=== PATIENT | female | born 1990 | race Caucasian/White ===

== ENCOUNTER 2019-05-26 23:36 | Inpatient (IN) | payer OTHER ==
--- NOTE | 2019-05-27 02:20 | PDOC ---
*Physical Exam - Vital Signs Last Vital Signs Temp Pulse Resp BP Pulse Ox 98.6 F 93 H 19 132/76 96 05/26/19 23:36 05/26/19 23:36 05/26/19 23:36 05/26/19 23:36 05/26/19 23:36 ED Treatment Course - LABORATORY CBC & Chemistry Diagram: 05/27/19 03:13 05/27/19 03:13 Medical Decision Making - Medical Decision Making 05/27/19 02:20 Patient seen by the advanced practice provider under my direct supervision. Ancillary testing reviewed as necessary. I agree with plan as outlined by the advanced practice provider. Discharge - Discharge Information Problems reviewed: Yes Clinical Impression/Diagnosis: Pneumonia Qualifiers: Pneumonia type: due to unspecified organism Laterality: left Lung location: lower lobe of lung Qualified Code(s): J18.9 - Pneumonia, unspecified organism Condition: Fair - Follow up/Referral - Patient Discharge Instructions - Post Discharge Activity
[2019-05-27] MEDS ORDERED: methylPREDNISolone NA SUCC 125 MG/2 ML VIAL IVPUSH ONE (02:38)
--- NOTE | 2019-05-27 02:38 | PDOC ---
History of Present Illness - General Chief Complaint: Respiratory Stated Complaint: SOB Time Seen by Provider: 05/27/19 02:14 History Source: Patient - History of Present Illness Initial Comments: 05/27/19 03:49 28-year-old female complaining of shortness of breath worsening throughout the day. Patient was seen in the [facility] urgent care yesterday and was prescribed azithromycin and amoxicillin. At [facility] patient was diagnosed with left lower lobe pneumonia. Patient reports no significant improvement. Denies fever/ chills, patient reports that symptoms started 1 day ago with a sore throat and cough. patient reports using albuterol at home with no relief in symptoms. denies OCP use, prolonged sitting PMHX: asthma 05/27/19 06:25 05/27/19 06:54 Past History - Past Medical History Allergies/Adverse Reactions: Allergies Allergy/AdvReac Type Severity Reaction Status Date / Time No Known Allergies Allergy Verified 05/26/19 23:55 Home Medications: Ambulatory Orders Clonidine HCl [Catapres] 0.2 mg PO BID 05/27/19 Metoprolol Tartrate 25 mg PO BID 05/27/19 Asthma: Yes - Psycho Social/Smoking Cessation Hx Smoking History: Never smoked Hx Alcohol Use: No Drug/Substance Use Hx: No Respiratory Specific PMHX - Complaint Specific PMHX Hx Asthma: Yes Hx Bronchitis: Yes Review of Systems - Review of Systems Able to Perform ROS?: Yes Is the patient limited Slovenian proficient: No Constitutional: Yes: Loss of Appetite HEENTM: No: Symptoms Reported, See HPI, Eye Pain, Blurred Vision, Tearing, Recent change in vision, Double Vision, Cataracts, Ear Pain, Ocular Prothesis, Ear Discharge, Nose Pain, Nose Congestion, Tinnitus, Nose Bleeding, Hearing Loss , Throat Pain, Throat Swelling, Mouth Pain, Dental Problems, Difficulty Swallowing, Mouth Swelling, Other Respiratory: Yes: Cough, Shortness of Breath Cardiac (ROS): Yes: Chest Tightness ABD/GI: No: Symptoms Reported, See HPI, Abdominal Distended, Abd. Pain w/ defecation, Blood Streaked Bowels, Constipated, Diarrhea, Difficulty Swallowing , Nausea, Poor Appetite, Poor Fluid Intake, Rectal Bleeding, Vomiting, Indigestion, Abdominal cramping, Tarry Stools, Other *Physical Exam - Vital Signs Last Vital Signs Temp Pulse Resp BP Pulse Ox 98.6 F 93 H 19 132/76 96 05/26/19 23:36 05/26/19 23:36 05/26/19 23:36 05/26/19 23:36 05/26/19 23:36 - Physical Exam General Appearance: Yes: Appropriately Dressed, Obese Respiratory/Chest: positive: Wheezing, Other (coarse breath sounds) Cardiovascular: positive: Regular Rhythm, Regular Rate Integumentary: positive: Normal Color, Dry, Warm Neurologic: positive: Fully Oriented, Normal Mood/Affect ED Treatment Course - LABORATORY CBC & Chemistry Diagram: 05/27/19 03:13 05/27/19 03:13 ED Progress Note - Progress Note Progress Note: 05/27/19 03:51 A: shortness of breath P: labs chest xray Medical Decision Making - Medical Decision Making 05/27/19 05:33 Improved aeration. Clear breath sounds patient reports improvement in the chest congestion. Will switch antibiotic from amoxicillin to cefdinir. 05/27/19 06:10 patient noted to be tachycardic and hypoxic. will admit. ordered cta 05/27/19 06:14 05/27/19 07:02 patient signed out to Gloria RODRIGUEZ pending admission. 05/27/19 19:13 Discharge - Discharge Information Problems reviewed: Yes Clinical Impression/Diagnosis: Hypoxia, Shortness of breath Pneumonia Qualifiers: Pneumonia type: due to unspecified organism Laterality: left Lung location: unspecified part of lung Qualified Code(s): J18.9 - Pneumonia, unspecified organism Condition: Fair - Admission Yes - Follow up/Referral - Patient Discharge Instructions - Post Discharge Activity
[2019-05-27] MEDS ORDERED: methylPREDNISolone NA SUCC 125 MG/2 ML VIAL ONE (02:47)
[2019-05-27] MEDS ORDERED: ALBUTEROL SO4 2.5/IPRATROPIUM 0.5 INH SOL 3 ML VIAL.NEB. NEB ONE ×3 (02:47→04:28)
[2019-05-27] MEDS: ALBUTEROL SO4 2.5/IPRATROPIUM 0.5 INH SOL 3 ML VIAL.NEB. NEB SCH ×3 (03:05→21:00)
[2019-05-27 03:21] LABS: URINE APPEARANCE CLEAR; URINE COLOR YELLOW
[2019-05-27 03:22] LABS: URINE BILIRUBIN NEGATIVE (NEGATIVE); URINE GLUCOSE (UA) NEGATIVE (NEGATIVE); URINE KETONE NEGATIVE (NEGATIVE); URINE PROTEIN 30 (NEGATIVE)
[2019-05-27 03:23] LABS: URINE LEUK ESTERASE NEGATIVE (NEGATIVE); URINE NITRITE NEGATIVE (NEGATIVE); URINE RBC 8 /hpf (0-4); URINE UROBILINOGEN 0.2 mg/dL (0.2-1.0); URINE WBC 1 /hpf (0-5)
[2019-05-27 03:24] LABS: EPI CELLS FEW /HPF (0-5/HPF); HYALINE CASTS 5 /lpf (0-8); URINE BACTERIA 43 /hpf (NEGATIVE)
[2019-05-27 03:32] LABS: NEUT % 88.9 % (42.8-82.8); RDW 14.1 % (11.6-15.6)
[2019-05-27 03:37] LABS: BASO % 0.6 % (0-2.0); HEMATOCRIT 37.2 % (32.4-45.2); HEMOGLOBIN 12.3 GM/dL (10.7-15.3); MCH 30.7 pg (25.7-33.7); MCHC 33.1 g/dl (32.0-36.0); MEAN CELL VOLUME 92.7 fl (80-96); MONO % 5.5 % (3.8-10.2); PLATELET COUNT 218 K/MM3 (134-434); RBC 4.01 M/mm3 (3.60-5.2)
[2019-05-27 03:45] LABS: WHITE BLOOD COUNT 5.6 K/mm3 (4.0-10.0)
[2019-05-27 03:53] LABS: ALBUMIN 4.1 g/dl (3.4-5.0); BILIRUBIN,TOTAL 0.2 mg/dL (0.2-1); BLOOD UREA NITROGEN 11.1 mg/dL (7-18); CALCIUM 8.5 mg/dL (8.5-10.1); CREATININE 0.7 mg/dL (0.55-1.3); POTASSIUM 3.7 mmol/L (3.5-5.1); TOT PROT 7.2 g/dl (6.4-8.2)
[2019-05-27] MEDS ORDERED: CEFTRIAXONE 1,000 MG in DEXTROSE 5%-WATER - 50 ML IVPB ONE (04:10)
[2019-05-27] MEDS ORDERED: guaiFENesin/CODEINE 10 ML UNIT-DOSE CUPS PO ONE (04:40)
[2019-05-27] MEDS ORDERED: guaiFENesin/CODEINE 5 ML UNIT-DOSE CUPS PO ONE ×2 (04:48→15:13)
[2019-05-27] MEDS ORDERED: CEFTRIAXONE 1 GM/50 ML BAG ONE ×2 (04:48→10:16)
--- NOTE | 2019-05-27 08:15 | PDOC ---
*Physical Exam - Vital Signs Last Vital Signs Temp Pulse Resp BP Pulse Ox 99.8 F H 113 H 22 H 135/86 88 L 05/27/19 05:30 05/27/19 05:30 05/27/19 05:30 05/27/19 05:30 05/27/19 05:30 - Physical Exam General Appearance: Yes: Appropriately Dressed. No: Apparent Distress HEENT: positive: Normal Voice Neck: positive: Supple Respiratory/Chest: positive: Lungs Clear, Normal Breath Sounds. negative: Respiratory Distress Integumentary: positive: Dry, Warm Neurologic: positive: Fully Oriented, Alert, Normal Mood/Affect ED Treatment Course - LABORATORY CBC & Chemistry Diagram: 05/27/19 03:13 05/27/19 03:13 - ADDITIONAL ORDERS Additional order review: Laboratory Results 05/27/19 05/27/19 05/27/19 03:13 02:52 02:52 Sodium 137 Potassium 3.7 Chloride 107 Carbon Dioxide 22 Anion Gap 8 BUN 11.1 Creatinine 0.7 Est GFR (CKD-EPI)AfAm 137.62 Est GFR (CKD-EPI)NonAf 118.74 Random Glucose 115 H Calcium 8.5 Total Bilirubin 0.2 AST 14 L ALT 26 Alkaline Phosphatase 69 Total Protein 7.2 Albumin 4.1 Urine Color Yellow Urine Appearance Clear Urine pH 6.0 Ur Specific [place] 1.040 H Urine Protein 30 Urine Glucose (UA) Negative Urine Ketones Negative Urine Blood Negative Urine Nitrite Negative Urine Bilirubin Negative Urine Urobilinogen 0.2 Ur Leukocyte Esterase Negative Urine WBC (Auto) 1 Urine RBC (Auto) 8 Urine Casts (Auto) 5 U Epithel Cells (Auto) Few Urine Bacteria (Auto) 43 Urine HCG, Qual Negative 05/27/19 03:13 RBC 4.01 MCV 92.7 MCHC 33.1 RDW 14.1 MPV 10.0 Neutrophils % 88.9 H Lymphocytes % 5.0 L Monocytes % 5.5 Eosinophils % 0.0 Basophils % 0.6 - Medications Given in the ED: ED Medications Discontinued Medications Generic Name Dose Route Start Last Admin Trade Name Freq PRN Reason Stop Dose Admin Albuterol/Ipratropium 1 amp 05/27/19 02:45 05/27/19 03:21 Duoneb - NEB 05/27/19 03:01 1 amp Q15M RUBIO Administration Albuterol/Ipratropium 1 amp 05/27/19 03:52 05/27/19 04:35 Duoneb - NEB 05/27/19 03:53 1 amp ONCE ONE Administration Guaifenesin/Codeine Phosphate 10 ml 05/27/19 04:40 05/27/19 05:00 Robitussin Ac - PO 05/27/19 04:41 10 ml ONCE ONE Administration Ceftriaxone Sodium 1,000 mg/ 50 mls @ 100 mls/hr 05/27/19 04:10 05/27/19 04: 56 Dextrose IVPB 05/27/19 04:39 100 mls/hr ONCE ONE Administration Methylprednisolone Sodium Succinate 125 mg 05/27/19 02:38 05/27/19 03:45 Solu-Medrol - IVPUSH 05/27/19 02:39 125 mg ONCE ONE Administration Medical Decision Making - Medical Decision Making 05/27/19 08:08 Patient signed out to me at 7 AM as pending admission. Patient is a morbidly obese 28-year-old female with a history of asthma and pneumonia, s/p intubation for same at 17 years old, here with worsening shortness of breath. Patient patient states 4 days ago she developed cough, shortness of breath and wheezing and that her home asthma meds were not helping so went to [facility] and was diagnosed with LLL pneumonia. Was on azithromycin and amoxicillin with no relief. Labs unremarkable in ED. EKG w/ sinus tach and atelectic changes to L base on CXR. Patient initially improved and was being prepared for discharge when was found to be hypoxic to high 80s per prior team. Has since been given steroids and a dose of ceftriaxone w/ CTA pending. Pending signout to admitting team Discharge - Discharge Information Problems reviewed: Yes Clinical Impression/Diagnosis: Bronchitis, Hypoxia, Shortness of breath Condition: Fair - Admission Yes - Follow up/Referral - Patient Discharge Instructions - Post Discharge Activity
--- NOTE | 2019-05-27 08:19 | HP ---
CHIEF COMPLAINT: Shortness of breath PCP: Dr Ashley Chilel- [facility] HISTORY OF PRESENT ILLNESS: Pt is a 28 y/o F with a significant past medical history of HTN and asthma who presents to [facility] [place] 2[facility] due to shortness of breath. Pt endorses that her symptoms commenced Sunday. Pt endorses the shortness of breath woke her from sleep. States she also has been experiencing a cough productive of clear sputum during this time. Pt experiences pain with deep inspiration. Yesterday, pt went to [facility] Urgent care where she underwent a CXR and was told she had " a left lung infiltrate". Pt was placed on a Z-Tim as well as amoxicillin. Pt has also taken Robitussin which has not [id number] her symptoms. In ER, pt was noted to desaturate to 88% on room air. Pt denies ever experiencing these symptoms before. Denies travel history, oral contraceptive use, prolonged immobilization , family history of clotting disorders, or recent surgery. Does endorse an extensive smoking history. PMH as Above SocialHx- Smokes 1PPD Tobacco. Denies alcohol or illicit drug use SurgHx- Denies FamHx- Mother Healthy. Father HTN NKDA ER course was notable for: (1) CXR--> Atelectasis left lung base (2) O2 sat 88% on room air (3) Ceftriaxone 1 gram, Solumedrol 125 once Recent Travel: Denies HOME MEDICATIONS: REVIEW OF SYSTEMS CONSTITUTIONAL: PRESENT: chills generalized weakness, malaise HEENT: Absent: rhinorrhea, nasal congestion, throat pain, throat swelling, difficulty swallowing, mouth swelling, ear pain, eye pain, visual changes CARDIOVASCULAR: Absent: chest pain, syncope, palpitations, irregular heart rate, lightheadedness , peripheral edema RESPIRATORY: PRESENT cough, shortness of breath, dyspnea with exertion GASTROINTESTINAL: Absent: abdominal pain, abdominal distension, nausea, vomiting, diarrhea, constipation, melena, hematochezia GENITOURINARY: Absent: dysuria, frequency, urgency, hesitancy, hematuria, flank pain, genital pain MUSCULOSKELETAL: Absent: myalgia, arthralgia, joint swelling, back pain, neck pain SKIN: Absent: rash, itching, pallor HEMATOLOGIC/IMMUNOLOGIC: Absent: easy bleeding, easy bruising, lymphadenopathy, frequent infections ENDOCRINE: Absent: unexplained weight gain, unexplained weight loss, heat intolerance, cold intolerance NEUROLOGIC: Absent: headache, focal weakness or paresthesias, dizziness, unsteady gait, seizure, mental status changes, bladder or bowel incontinence PSYCHIATRIC: Absent: anxiety, depression, suicidal or homicidal ideation, hallucinations. PHYSICAL EXAMINATION Vital Signs - 24 hr 05/26/19 05/27/19 23:36 05:30 Temperature 98.6 F 99.8 F H Pulse Rate 93 H Pulse Rate [ 113 H Left Radial] Respiratory 19 22 H Rate Blood Pressure 132/76 Blood Pressure 135/86 [Left Arm] O2 Sat by Pulse 96 88 L Oximetry (%) GENERAL: Mild Distress, AAOx3 HEAD: Normal with no signs of trauma. EYES:EOMI Sclera Clear EARS, NOSE, THROAT: MMM NECK:Supple, no accessory muscle use for respiration LUNGS: No wheezing rhonchi or rales appreciated. Pain with inspiration. HEART: Tachycardic, S1S2 ABDOMEN: Soft, NDNT, Obese MUSCULOSKELETAL: FROm throughout LOWER EXTREMITIES: No CCE. NEUROLOGICAL: Cranial nerves II-XII intact. Normal speech. PSYCHIATRIC: Cooperative. Good eye contact. Appropriate mood and affect. SKIN: Warm, dry, normal turgor, no rashes or lesions noted, normal capillary refill. Laboratory Results - last 24 hr 05/27/19 05/27/19 05/27/19 02:52 02:52 03:13 WBC 5.6 RBC 4.01 Hgb 12.3 Hct 37.2 MCV 92.7 MCH 30.7 MCHC 33.1 RDW 14.1 Plt Count 218 MPV 10.0 Absolute Neuts (auto) 5.0 Neutrophils % 88.9 H Neutrophils % (Manual) No Result Required. Lymphocytes % 5.0 L Monocytes % 5.5 Eosinophils % 0.0 Basophils % 0.6 Nucleated RBC % 0 Sodium Potassium Chloride Carbon Dioxide Anion Gap BUN Creatinine Est GFR (CKD-EPI)AfAm Est GFR (CKD-EPI)NonAf Random Glucose Calcium Total Bilirubin AST ALT Alkaline Phosphatase Total Protein Albumin Urine Color Yellow Urine Appearance Clear Urine pH 6.0 Ur Specific [place] 1.040 H Urine Protein 30 Urine Glucose (UA) Negative Urine Ketones Negative Urine Blood Negative Urine Nitrite Negative Urine Bilirubin Negative Urine Urobilinogen 0.2 Ur Leukocyte Esterase Negative Urine WBC (Auto) 1 Urine RBC (Auto) 8 Urine Casts (Auto) 5 U Epithel Cells (Auto) Few Urine Bacteria (Auto) 43 Urine HCG, Qual Negative 05/27/19 03:13 WBC RBC Hgb Hct MCV MCH MCHC RDW Plt Count MPV Absolute Neuts (auto) Neutrophils % Neutrophils % (Manual) Lymphocytes % Monocytes % Eosinophils % Basophils % Nucleated RBC % Sodium 137 Potassium 3.7 Chloride 107 Carbon Dioxide 22 Anion Gap 8 BUN 11.1 Creatinine 0.7 Est GFR (CKD-EPI)AfAm 137.62 Est GFR (CKD-EPI)NonAf 118.74 Random Glucose 115 H Calcium 8.5 Total Bilirubin 0.2 AST 14 L ALT 26 Alkaline Phosphatase 69 Total Protein 7.2 Albumin 4.1 Urine Color Urine Appearance Urine pH Ur Specific [place] Urine Protein Urine Glucose (UA) Urine Ketones Urine Blood Urine Nitrite Urine Bilirubin Urine Urobilinogen Ur Leukocyte Esterase Urine WBC (Auto) Urine RBC (Auto) Urine Casts (Auto) U Epithel Cells (Auto) Urine Bacteria (Auto) Urine HCG, Qual ASSESSMENT/PLAN: Pt is a 28 y/o F with a significant past medical history of HTN and asthma who presents to [facility] [place] 2] due to shortness of breath. # Possible Community Acquired Pneumonia -Urgent care CXR--> LLL Infiltrate -CXR here---> Atelectasis LLL. -No fever or leukocytosis however. Pt started on Azithromycin and amoxicillin by Urgent care. Will place patient on Ceftriaxone and Azithro empirically until CT Chest finalized. - Robitussin PRN for cough # r/o Pulmonary Embolism -Pt wih pleuritic chest pain, tachycardia, multiple risk factors including exteneive smoking history and obesity. -CTA to assess for pulm embolism. -Tramadol, Tylenol prn for pain -Will AC if + PE #HTN -Resume Catapres .2 BID -Resume Metoprolol 25 BID #Asthma -Duonebs q4H PRN #FEN -NS@75 cc -Monitor Electrolytes -Sodium Controlled #DVT ppx -Lovenox 40 Daily #Dispo -Med -Surg Visit type - Emergency Visit Emergency Visit: Yes ED Registration Date: 05/27/19 Care time: The patient presented to the Emergency Department on the above date and was hospitalized for further evaluation of their emergent condition. - New Patient This patient is new to me today: Yes Date on this admission: 05/27/19 - Critical Care Critical Care patient: No ATTENDING PHYSICIAN STATEMENT I saw and evaluated the patient. I reviewed the resident's note and discussed the case with the resident. I agree with the resident's findings and plan as documented. SUBJECTIVE: OBJECTIVE: ASSESSMENT AND PLAN:
[2019-05-27] MEDS ORDERED: ACETAMINOPHEN 500 MG TABLET (FP) PO PRN (08:23)
[2019-05-27] MEDS ORDERED: MAGNESIUM SULF 50% (8.12 MEQ/2 ML-1 GM VIAL) IVPB ONE (09:32)
[2019-05-27] MEDS ORDERED: MAGNESIUM SULF 50% (8.12 MEQ/2 ML-1 GM VIAL) ONE (10:15)
[2019-05-27] MEDS ORDERED: PT OWN MED DRAWER 7, Y5N ONE (10:16)
[2019-05-27] MEDS ORDERED: AZITHROMYCIN IVPB 500 MG/250 ML BAG IVPB ONE (10:16)
[2019-05-27] MEDS ORDERED: METOPROLOL TARTRATE 25 MG TABLET (FP) ONE (10:17)
[2019-05-27] MEDS ORDERED: cloNIDine HCL 0.1 MG TABLET ONE (10:17)
--- NOTE | 2019-05-27 10:19 | EKG ---
Test Reason : Blood Pressure : / mmHG Vent. Rate : 102 BPM Atrial Rate : 102 BPM P-R Int : 150 ms QRS Dur : 086 ms QT Int : 340 ms P-R-T Axes : 051 019 047 degrees QTc Int : 443 ms SINUS TACHYCARDIA POSSIBLE LEFT ATRIAL ENLARGEMENT Confirmed by MD BLAZE, ROSA ([id number]) on 05/27/2019 10:19:32 AM Referred By: Confirmed By:ROSA THAKUR MD
[2019-05-27] MEDS: cloNIDine HCL 0.1 MG TABLET PO SCH ×2 (10:39→21:51)
[2019-05-27] MEDS: ENOXAPARIN NA (PORCINE) 40 MG/0.4 ML DISP.SYRIN SQ SCH (10:39)
[2019-05-27] MEDS: METOPROLOL TARTRATE 25 MG TABLET (FP) PO SCH ×2 (10:39→21:51)
[2019-05-27] MEDS: SODIUM CHLORIDE 1,000 ML IV SCH ×2 (10:39→20:18)
[2019-05-27] MEDS: AZITHROMYCIN IVPB 500 MG/250 ML BAG IVPB SCH (10:40)
[2019-05-27] MEDS ORDERED: traMADol HCL 50 MG TABLET ONE (11:05)
[2019-05-27] MEDS: traMADol HCL 50 MG TABLET PO PRN ×2 (11:32→18:27)
[2019-05-27] MEDS ORDERED: guaiFENesin/D-METHORPHAN HB 10 ML UNIT-DOSE CUPS PO ONE (12:08)
[2019-05-27 16:46] LABS: ARTERIAL BLD GAS O2 SATURATION 94.6 % (95-98); ARTERIAL BLOOD GAS BASE EXCESS -3.6 meq/l (-2-2); ARTERIAL BLOOD GAS PCO2 29.9 mmHg (35-45); ARTERIAL BLOOD GAS PO2 73.3 mmHg (80-100); ARTERIAL BLOOD GAS pH 7.43 (7.35-7.45)
[2019-05-27 16:55] LABS: ALLENS TEST POSITIVE
--- NOTE | 2019-05-27 19:15 | PN ---
Teaching Attending Note Name of Resident: Jamshid Wills ATTENDING PHYSICIAN STATEMENT I saw and evaluated the patient. I reviewed the resident's note and discussed the case with the resident. I agree with the resident's findings and plan as documented. SUBJECTIVE: Some improvement in SOB. No wheeze. Dry cough. No hemoptysis. Complains of tightness on breathing OBJECTIVE: Tmax 99.8. Hemodynamicaly Stable. Last Vital Signs Temp Pulse Resp BP Pulse Ox 99.8 F H 103 H 22 H 135/72 94 L 05/27/19 05:30 05/27/19 18:00 05/27/19 05:30 05/27/19 18:00 05/27/19 18:00 HEENT - Atraumatic, Normocephalic. Heart - S1, S2, RRR Lungs - Good Air entry bilaterally Abdomen - High BMI. Soft. Bowel Sounds normal. Extremities - no calf tenderness. Laboratory Results - last 24 hr 05/27/19 05/27/19 05/27/19 02:52 02:52 03:13 WBC 5.6 RBC 4.01 Hgb 12.3 Hct 37.2 MCV 92.7 MCH 30.7 MCHC 33.1 RDW 14.1 Plt Count 218 MPV 10.0 Absolute Neuts (auto) 5.0 Neutrophils % 88.9 H Neutrophils % (Manual) No Result Required. Lymphocytes % 5.0 L Monocytes % 5.5 Eosinophils % 0.0 Basophils % 0.6 Nucleated RBC % 0 Anticoagulation Therapy Puncture Site ABG pH ABG pCO2 at Pt Temp ABG pO2 at Pt Temp ABG HCO3 ABG O2 Sat (Measured) ABG O2 Content ABG Base Excess Eduardo Test O2 Delivery Device Oxygen Flow Rate Vent Mode Vent Rate Mechanical Rate Pressure Support Vent Sodium Potassium Chloride Carbon Dioxide Anion Gap BUN Creatinine Est GFR (CKD-EPI)AfAm Est GFR (CKD-EPI)NonAf Random Glucose Calcium Total Bilirubin AST ALT Alkaline Phosphatase Total Protein Albumin Urine Color Yellow Urine Appearance Clear Urine pH 6.0 Ur Specific [place] 1.040 H Urine Protein 30 Urine Glucose (UA) Negative Urine Ketones Negative Urine Blood Negative Urine Nitrite Negative Urine Bilirubin Negative Urine Urobilinogen 0.2 Ur Leukocyte Esterase Negative Urine WBC (Auto) 1 Urine RBC (Auto) 8 Urine Casts (Auto) 5 U Epithel Cells (Auto) Few Urine Bacteria (Auto) 43 Urine HCG, Qual Negative 05/27/19 05/27/19 03:13 15:55 WBC RBC Hgb Hct MCV MCH MCHC RDW Plt Count MPV Absolute Neuts (auto) Neutrophils % Neutrophils % (Manual) Lymphocytes % Monocytes % Eosinophils % Basophils % Nucleated RBC % Anticoagulation Therapy No Result Required. Puncture Site Left radial ABG pH 7.43 ABG pCO2 at Pt Temp 29.9 L ABG pO2 at Pt Temp 73.3 L ABG HCO3 19.3 L ABG O2 Sat (Measured) 94.6 L ABG O2 Content 16.5 ABG Base Excess -3.6 L Eduardo Test Positive O2 Delivery Device No Result Required. Oxygen Flow Rate 40% Vent Mode Venti mask Vent Rate No Result Required. Mechanical Rate No Result Required. Pressure Support Vent No Result Required. Sodium 137 Potassium 3.7 Chloride 107 Carbon Dioxide 22 Anion Gap 8 BUN 11.1 Creatinine 0.7 Est GFR (CKD-EPI)AfAm 137.62 Est GFR (CKD-EPI)NonAf 118.74 Random Glucose 115 H Calcium 8.5 Total Bilirubin 0.2 AST 14 L ALT 26 Alkaline Phosphatase 69 Total Protein 7.2 Albumin 4.1 Urine Color Urine Appearance Urine pH Ur Specific [place] Urine Protein Urine Glucose (UA) Urine Ketones Urine Blood Urine Nitrite Urine Bilirubin Urine Urobilinogen Ur Leukocyte Esterase Urine WBC (Auto) Urine RBC (Auto) Urine Casts (Auto) U Epithel Cells (Auto) Urine Bacteria (Auto) Urine HCG, Qual Current Medications Generic Name Dose Route Start Last Admin Trade Name Freq PRN Reason Stop Dose Admin Acetaminophen 1,000 mg 05/27/19 08:23 Tylenol - PO Q6H PRN PAIN LEVEL 4 - 6 Clonidine 0.2 mg 05/27/19 10:00 05/27/19 10:39 Catapres - PO 0.2 mg BID RUBIO Administration Enoxaparin Sodium 40 mg 05/27/19 10:00 05/27/19 10:39 Lovenox - SQ 40 mg DAILY RUBIO Administration Azithromycin 500 mg in 250 mls @ 250 mls/hr 05/27/19 10:00 05/27/19 10:40 Zithromax 500mg Ivpb (Pre-Docked) IVPB 250 mls/hr DAILY RUBIO Administration Ceftriaxone Sodium 1 gm/ 50 mls @ 100 mls/hr 05/28/19 10:00 Dextrose IVPB DAILY RUBIO Sodium Chloride 1,000 mls @ 75 mls/hr 05/27/19 09:00 05/27/19 10:39 Normal Saline - IV 75 mls/hr ASDIR RUBIO Administration Metoprolol Tartrate 25 mg 05/27/19 10:00 05/27/19 10:39 Lopressor - PO 25 mg BID RUBIO Administration Tramadol HCl 50 mg 05/27/19 08:23 05/27/19 18:27 Ultram - PO 50 mg Q6H PRN Administration PAIN LEVEL 7 - 10 Home Medications Medication Instructions Recorded Clonidine HCl [Catapres] 0.2 mg PO BID 05/27/19 Metoprolol Tartrate 25 mg PO BID 05/27/19 ASSESSMENT AND PLAN: 28 year old male with history of HTN and Asthma, presented with 2-3 da history of increasing shortness of breath, cough (productive of clear sputum), treated as out-patient with Amoxicillin and Azithromycin. 1. Acute Respiratory Failure and Acute Asthma Exacerbation secondary to OLGA Pneumonia (CAP) Tmax 99.8, SpO2 88% RA CTA Chest - no PE, OLGA PNA, Atelectasis Continue Ceftriaxone/Azithromycin supplemental O2 Hx of Asthma with tightness on breathing and cough - will treat as Asthma exacerbation with Solumedrol and DuoNebs. 2. HTN - resume clonidine 0.2mg BID and Metoprolol 25 BID DVT Px- Lovenox SQ
[2019-05-27 22:49] VITALS: BMI 46.6
[2019-05-28] MEDS: guaiFENesin 200 MG/10 ML 10 ML UNIT-DOSE CUPS PO PRN ×3 (01:04→17:27)
[2019-05-28] MEDS: ALBUTEROL SO4 2.5/IPRATROPIUM 0.5 INH SOL 3 ML VIAL.NEB. NEB PRN (01:41)
[2019-05-28] MEDS: methylPREDNISolone NA SUCC 40 MG/1 ML VIAL IVPUSH SCH ×3 (01:45→17:01)
[2019-05-28] MEDS: traMADol HCL 50 MG TABLET PO PRN ×2 (01:50→09:23)
[2019-05-28] MEDS: SODIUM CHLORIDE 1,000 ML IV SCH ×2 (06:20→09:00)
[2019-05-28] MEDS: ALBUTEROL SO4 2.5/IPRATROPIUM 0.5 INH SOL 3 ML VIAL.NEB. NEB SCH ×4 (08:22→20:59)
[2019-05-28] MEDS ORDERED: DEXTROSE 5%-WATER - 50 ML IVPB ONE (09:07)
[2019-05-28] MEDS ORDERED: cefTRIAXone SODIUM 1 GM VIAL ONE (09:07)
[2019-05-28 09:08] LABS: BASO % 0.2 % (0-2.0); HEMATOCRIT 38.9 % (32.4-45.2); HEMOGLOBIN 12.7 GM/dL (10.7-15.3); MCH 30.6 pg (25.7-33.7); MCHC 32.7 g/dl (32.0-36.0); MEAN CELL VOLUME 93.4 fl (80-96); MEAN PLT VOLUME 10.2 fl (7.5-11.1); MONO % 2.9 % (3.8-10.2); NEUT % 89.9 % (42.8-82.8); PLATELET COUNT 253 K/MM3 (134-434); RBC 4.16 M/mm3 (3.60-5.2); RDW 14.4 % (11.6-15.6); WHITE BLOOD COUNT 7.3 K/mm3 (4.0-10.0)
[2019-05-28 09:16] LABS: INR 1.08 (0.83-1.09); PROTHROMBIN TIME (PATIENT) 12.7 SEC (9.7-13.0)
[2019-05-28] MEDS: cloNIDine HCL 0.1 MG TABLET PO SCH ×2 (09:24→21:41)
[2019-05-28] MEDS: METOPROLOL TARTRATE 25 MG TABLET (FP) PO SCH ×2 (09:24→21:42)
[2019-05-28] MEDS: CEFTRIAXONE 1 GM in DEXTROSE 5%-WATER - 50 ML IVPB SCH (09:28)
[2019-05-28 09:34] LABS: ALBUMIN 3.7 g/dl (3.4-5.0); BILIRUBIN,TOTAL 0.2 mg/dL (0.2-1); CALCIUM 8.2 mg/dL (8.5-10.1); CREATININE 0.7 mg/dL (0.55-1.3); MAGNESIUM 2.7 mg/dL (1.8-2.4); PHOSPHOROUS 2.9 mg/dL (2.5-4.9); POTASSIUM 4.5 mmol/L (3.5-5.1); TOT PROT 7.4 g/dl (6.4-8.2)
[2019-05-28] MEDS ORDERED: CEFTRIAXONE 1,000 MG in DEXTROSE 5%-WATER - 50 ML IVPB ONE (10:00)
[2019-05-28] MEDS: AZITHROMYCIN IVPB 500 MG/250 ML BAG IVPB SCH (12:24)
[2019-05-28] MEDS: ENOXAPARIN NA (PORCINE) 40 MG/0.4 ML DISP.SYRIN SQ SCH (12:27)
--- NOTE | 2019-05-28 13:07 | PN ---
Teaching Attending Note Name of Resident: Loreta Moon ATTENDING PHYSICIAN STATEMENT I saw and evaluated the patient. I reviewed the resident's note and discussed the case with the resident. I agree with the resident's findings and plan as documented. SUBJECTIVE: Continued improvement in SOB. No wheeze. Dry cough. No hemoptysis. No fever/chills. OBJECTIVE: Afebrile. Hemodynamicaly Stable. Last Vital Signs Temp Pulse Resp BP Pulse Ox 98.8 F 84 18 114/71 94 L 05/28/19 06:00 05/28/19 06:00 05/28/19 06:00 05/28/19 06:00 05/27/19 21:00 Heart - S1, S2, RRR Lungs - Mildly reduced air entry bilaterally, no wheeze. Abdomen - High BMI. Soft. Bowel Sounds normal. Extremities - no calf tenderness. Laboratory Results - last 24 hr 05/27/19 05/28/19 05/28/19 15:55 07:00 07:00 WBC 7.3 RBC 4.16 Hgb 12.7 Hct 38.9 MCV 93.4 MCH 30.6 MCHC 32.7 RDW 14.4 Plt Count 253 MPV 10.2 Absolute Neuts (auto) 6.6 Neutrophils % 89.9 H Lymphocytes % 7.0 L D Monocytes % 2.9 L Eosinophils % 0.0 Basophils % 0.2 Nucleated RBC % 0 PT with INR 12.70 INR 1.08 PTT (Actin FS) 32.0 Anticoagulation Therapy No Result Required. Puncture Site Left radial ABG pH 7.43 ABG pCO2 at Pt Temp 29.9 L ABG pO2 at Pt Temp 73.3 L ABG HCO3 19.3 L ABG O2 Sat (Measured) 94.6 L ABG O2 Content 16.5 ABG Base Excess -3.6 L Eduardo Test Positive O2 Delivery Device No Result Required. Oxygen Flow Rate 40% Vent Mode Venti mask Vent Rate No Result Required. Mechanical Rate No Result Required. Pressure Support Vent No Result Required. Sodium Potassium Chloride Carbon Dioxide Anion Gap BUN Creatinine Est GFR (CKD-EPI)AfAm Est GFR (CKD-EPI)NonAf Random Glucose Calcium Phosphorus Magnesium Total Bilirubin AST ALT Alkaline Phosphatase Total Protein Albumin 05/28/19 07:00 WBC RBC Hgb Hct MCV MCH MCHC RDW Plt Count MPV Absolute Neuts (auto) Neutrophils % Lymphocytes % Monocytes % Eosinophils % Basophils % Nucleated RBC % PT with INR INR PTT (Actin FS) Anticoagulation Therapy Puncture Site ABG pH ABG pCO2 at Pt Temp ABG pO2 at Pt Temp ABG HCO3 ABG O2 Sat (Measured) ABG O2 Content ABG Base Excess Eduardo Test O2 Delivery Device Oxygen Flow Rate Vent Mode Vent Rate Mechanical Rate Pressure Support Vent Sodium 137 Potassium 4.5 Chloride 108 H Carbon Dioxide 21 Anion Gap 8 BUN 11.0 Creatinine 0.7 Est GFR (CKD-EPI)AfAm 137.62 Est GFR (CKD-EPI)NonAf 118.74 Random Glucose 113 H Calcium 8.2 L Phosphorus 2.9 Magnesium 2.7 H Total Bilirubin 0.2 AST 29 ALT 31 Alkaline Phosphatase 66 Total Protein 7.4 Albumin 3.7 Current Medications Generic Name Dose Route Start Last Admin Trade Name Freq PRN Reason Stop Dose Admin Acetaminophen 1,000 mg 05/27/19 08:23 Tylenol - PO Q6H PRN PAIN LEVEL 4 - 6 Albuterol/Ipratropium 1 amp 05/27/19 20:00 05/28/19 12:01 Duoneb - NEB 1 amp RQID RUBIO Administration Albuterol/Ipratropium 1 amp 05/27/19 19:39 05/28/19 01:41 Duoneb - NEB 1 amp Q4H PRN Administration SHORTNESS OF BREATH Clonidine 0.2 mg 05/27/19 10:00 05/28/19 09:24 Catapres - PO 0.2 mg BID RUBIO Administration Enoxaparin Sodium 40 mg 05/27/19 10:00 05/28/19 12:27 Lovenox - SQ 40 mg DAILY RUBIO Administration Guaifenesin 10 ml 05/27/19 19:34 05/28/19 09:22 Robitussin - PO 10 ml Q6H PRN Administration COUGH Azithromycin 500 mg in 250 mls @ 250 mls/hr 05/27/19 10:00 05/28/19 12:24 Zithromax 500mg Ivpb (Pre-Docked) IVPB 250 mls/hr DAILY RUBIO Administration Ceftriaxone Sodium 1 gm/ 50 mls @ 100 mls/hr 05/28/19 10:00 05/28/19 09:28 Dextrose IVPB 100 mls/hr DAILY RUBIO Administration Sodium Chloride 1,000 mls @ 75 mls/hr 05/27/19 09:00 05/28/19 09:00 Normal Saline - IV Not Given ASDIR RUBIO Methylprednisolone Sodium Succinate 40 mg 05/28/19 02:00 05/28/19 09:26 Solu-Medrol - IVPUSH 40 mg Q8H-IV RUBIO Administration Metoprolol Tartrate 25 mg 05/27/19 10:00 05/28/19 09:24 Lopressor - PO 25 mg BID RUBIO Administration Tramadol HCl 50 mg 05/27/19 08:23 05/28/19 09:23 Ultram - PO 50 mg Q6H PRN Administration PAIN LEVEL 7 - 10 Home Medications Medication Instructions Recorded Clonidine HCl [Catapres] 0.2 mg PO BID 05/27/19 Metoprolol Tartrate 25 mg PO BID 05/27/19 ASSESSMENT AND PLAN: 28 year old male with history of HTN and Asthma, presented with 2-3 day history of increasing shortness of breath, cough (productive of clear sputum), treated as out-patient with Amoxicillin and Azithromycin. 1. Acute Respiratory Failure and Acute Asthma Exacerbation secondary to OLGA Pneumonia (CAP) Still requiring 8L O2 via VentiMask CTA Chest - no PE, OLGA PNA, Atelectasis Continue Ceftriaxone/Azithromycin supplemental O2 Continue Solumedrol and DuoNebs. 2. HTN - resumed on Clonidine 0.2mg BID and Metoprolol 25 BID DVT Px- Lovenox SQ
--- NOTE | 2019-05-28 15:09 | PN ---
Physical Exam: SUBJECTIVE: Patient seen and examined in the morning. No acute events overnight. Patient has some shortness of breath while on nasal cannula. No complaints of chest pain, abdominal pain, fever, chills. OBJECTIVE: Vital Signs Period Temp Pulse Resp BP Sys/Biswas Pulse Ox Last 24 Hr 98.4 F-99.1 F 80-103 18-20 102-136/53-75 93-94 GENERAL: The patient is awake, alert, and fully oriented, in no acute distress. HEAD: Normal with no signs of trauma. EYES: PERRL, extraocular movements intact, sclera anicteric, conjunctiva clear. No ptosis. ENT: Ears normal, nares patent, oropharynx clear without exudates, moist mucous membranes. on 4L NC. NECK: Trachea midline, full range of motion, supple. LUNGS: Poor air entry bilaterally. HEART: Regular rate and rhythm, S1, S2 without murmur, rub or gallop. ABDOMEN: Soft, nontender, nondistended, normoactive bowel sounds. EXTREMITIES: 2+ pulses, warm, well-perfused, no edema. NEUROLOGICAL: Cranial nerves II through XII grossly intact. Normal speech. Laboratory Results - last 24 hr 05/27/19 05/28/19 05/28/19 15:55 07:00 07:00 WBC 7.3 RBC 4.16 Hgb 12.7 Hct 38.9 MCV 93.4 MCH 30.6 MCHC 32.7 RDW 14.4 Plt Count 253 MPV 10.2 Absolute Neuts (auto) 6.6 Neutrophils % 89.9 H Lymphocytes % 7.0 L D Monocytes % 2.9 L Eosinophils % 0.0 Basophils % 0.2 Nucleated RBC % 0 PT with INR 12.70 INR 1.08 PTT (Actin FS) 32.0 Anticoagulation Therapy No Result Required. Puncture Site Left radial ABG pH 7.43 ABG pCO2 at Pt Temp 29.9 L ABG pO2 at Pt Temp 73.3 L ABG HCO3 19.3 L ABG O2 Sat (Measured) 94.6 L ABG O2 Content 16.5 ABG Base Excess -3.6 L Eduardo Test Positive O2 Delivery Device No Result Required. Oxygen Flow Rate 40% Vent Mode Venti mask Vent Rate No Result Required. Mechanical Rate No Result Required. Pressure Support Vent No Result Required. Sodium Potassium Chloride Carbon Dioxide Anion Gap BUN Creatinine Est GFR (CKD-EPI)AfAm Est GFR (CKD-EPI)NonAf Random Glucose Calcium Phosphorus Magnesium Total Bilirubin AST ALT Alkaline Phosphatase Total Protein Albumin 05/28/19 07:00 WBC RBC Hgb Hct MCV MCH MCHC RDW Plt Count MPV Absolute Neuts (auto) Neutrophils % Lymphocytes % Monocytes % Eosinophils % Basophils % Nucleated RBC % PT with INR INR PTT (Actin FS) Anticoagulation Therapy Puncture Site ABG pH ABG pCO2 at Pt Temp ABG pO2 at Pt Temp ABG HCO3 ABG O2 Sat (Measured) ABG O2 Content ABG Base Excess Eduardo Test O2 Delivery Device Oxygen Flow Rate Vent Mode Vent Rate Mechanical Rate Pressure Support Vent Sodium 137 Potassium 4.5 Chloride 108 H Carbon Dioxide 21 Anion Gap 8 BUN 11.0 Creatinine 0.7 Est GFR (CKD-EPI)AfAm 137.62 Est GFR (CKD-EPI)NonAf 118.74 Random Glucose 113 H Calcium 8.2 L Phosphorus 2.9 Magnesium 2.7 H Total Bilirubin 0.2 AST 29 ALT 31 Alkaline Phosphatase 66 Total Protein 7.4 Albumin 3.7 Active Medications Generic Name Dose Route Start Last Admin Trade Name Freq PRN Reason Stop Dose Admin Acetaminophen 1,000 mg 05/27/19 08:23 Tylenol - PO Q6H PRN PAIN LEVEL 4 - 6 Albuterol/Ipratropium 1 amp 05/27/19 20:00 05/28/19 12:01 Duoneb - NEB 1 amp RQID RUBIO Administration Albuterol/Ipratropium 1 amp 05/27/19 19:39 05/28/19 01:41 Duoneb - NEB 1 amp Q4H PRN Administration SHORTNESS OF BREATH Clonidine 0.2 mg 05/27/19 10:00 05/28/19 09:24 Catapres - PO 0.2 mg BID RUBIO Administration Enoxaparin Sodium 40 mg 05/27/19 10:00 05/28/19 12:27 Lovenox - SQ 40 mg DAILY RUBIO Administration Guaifenesin 10 ml 05/27/19 19:34 05/28/19 09:22 Robitussin - PO 10 ml Q6H PRN Administration COUGH Azithromycin 500 mg in 250 mls @ 250 mls/hr 05/27/19 10:00 05/28/19 12:24 Zithromax 500mg Ivpb (Pre-Docked) IVPB 250 mls/hr DAILY RUBIO Administration Ceftriaxone Sodium 1 gm/ 50 mls @ 100 mls/hr 05/28/19 10:00 05/28/19 09:28 Dextrose IVPB 100 mls/hr DAILY RUBIO Administration Methylprednisolone Sodium Succinate 40 mg 05/28/19 02:00 05/28/19 09:26 Solu-Medrol - IVPUSH 40 mg Q8H-IV RUBIO Administration Metoprolol Tartrate 25 mg 05/27/19 10:00 05/28/19 09:24 Lopressor - PO 25 mg BID RUBIO Administration Tramadol HCl 50 mg 05/27/19 08:23 05/28/19 09:23 Ultram - PO 50 mg Q6H PRN Administration PAIN LEVEL 7 - 10 ASSESSMENT/PLAN: 28 F with PMH of HTN and Asthma who presents with 2-3 day history of shortness of breath with unproductive cough, likely secondary to pneumonia. 1. Acute Respiratory Distress secondary to pneumonia -CTA chest shows no PE, ground glass opacities in the OLGA -Still requiring 40% Oxygen VentiMask -Continue Ceftriaxone 1 gram Daily -Continue Azithromycin 500 mg Daily -Continue Guaifenisin 10 ml Q6H -Continue Duo-nebs PRN -Continue Solu-medrol IV Q8H -Continue Tramadol 50 mg Q6H PRN pain level 7-10 -Continue Acetaminophen 1000mg Q6H PRN pain level 4-6 2. HTN -Continue Clonidine 0.2 mg PO BID -Continue Metoprolol 25 mg PO BID F: Oral Hydration E: Monitor BMP N: Sodium restricted diet DVT: Lovenox 40 SQ Daily Visit type - Emergency Visit Emergency Visit: Yes ED Registration Date: 05/27/19 Care time: The patient presented to the Emergency Department on the above date and was hospitalized for further evaluation of their emergent condition. - New Patient This patient is new to me today: Yes Date on this admission: 05/28/19 - Critical Care Critical Care patient: No ATTENDING PHYSICIAN STATEMENT I saw and evaluated the patient. I reviewed the resident's note and discussed the case with the resident. I agree with the resident's findings and plan as documented. SUBJECTIVE: OBJECTIVE: ASSESSMENT AND PLAN:
[2019-05-29] MEDS: methylPREDNISolone NA SUCC 40 MG/1 ML VIAL IVPUSH SCH (02:06)
[2019-05-29] MEDS: guaiFENesin 200 MG/10 ML 10 ML UNIT-DOSE CUPS PO PRN (02:07)
[2019-05-29] MEDS: traMADol HCL 50 MG TABLET PO PRN (02:08)
[2019-05-29] MEDS: ALBUTEROL SO4 2.5/IPRATROPIUM 0.5 INH SOL 3 ML VIAL.NEB. NEB PRN (02:15)
[2019-05-29] MEDS: ALBUTEROL SO4 2.5/IPRATROPIUM 0.5 INH SOL 3 ML VIAL.NEB. NEB SCH ×4 (07:25→21:05)
[2019-05-29] MEDS ORDERED: predniSONE 20 MG TABLET (UD) PO ONE (09:54)
[2019-05-29 10:44] LABS: BLOOD UREA NITROGEN 12.1 mg/dL (7-18); CALCIUM 8.8 mg/dL (8.5-10.1); CREATININE 0.8 mg/dL (0.55-1.3); POTASSIUM 3.8 mmol/L (3.5-5.1)
--- NOTE | 2019-05-29 10:44 | PN ---
Teaching Attending Note Name of Resident: Loreta Moon ATTENDING PHYSICIAN STATEMENT I saw and evaluated the patient. I reviewed the resident's note and discussed the case with the resident. I agree with the resident's findings and plan as documented. SUBJECTIVE: Continued improvement in SOB/cough. No wheeze. No hemoptysis. No fever/chills. OBJECTIVE: Afebrile. Hemodynamicaly Stable. SpO2 95% on 3L via NC. Last Vital Signs Temp Pulse Resp BP Pulse Ox 98.8 F 94 H 22 H 118/73 95 05/29/19 08:17 05/29/19 08:17 05/29/19 09:00 05/29/19 08:17 05/29/19 09:00 Heart - S1, S2, RRR Lungs - Good air entry bilaterally, no wheeze. Abdomen - High BMI. Soft. Bowel Sounds normal. Extremities - no calf tenderness. Current Medications Generic Name Dose Route Start Last Admin Trade Name Freq PRN Reason Stop Dose Admin Acetaminophen 1,000 mg 05/27/19 08:23 05/28/19 17:38 Tylenol - PO 1,000 mg Q6H PRN Administration PAIN LEVEL 4 - 6 Albuterol/Ipratropium 1 amp 05/27/19 20:00 05/29/19 07:25 Duoneb - NEB 1 amp RQID RUBIO Administration Albuterol/Ipratropium 1 amp 05/27/19 19:39 05/29/19 02:15 Duoneb - NEB 1 amp Q4H PRN Administration SHORTNESS OF BREATH Clonidine 0.2 mg 05/27/19 10:00 05/28/19 21:41 Catapres - PO 0.2 mg BID RUBIO Administration Enoxaparin Sodium 40 mg 05/27/19 10:00 05/28/19 12:27 Lovenox - SQ 40 mg DAILY RUBIO Administration Guaifenesin 10 ml 05/27/19 19:34 05/29/19 02:07 Robitussin - PO 10 ml Q6H PRN Administration COUGH Azithromycin 500 mg in 250 mls @ 250 mls/hr 05/27/19 10:00 05/28/19 12:24 Zithromax 500mg Ivpb (Pre-Docked) IVPB 250 mls/hr DAILY RUBIO Administration Ceftriaxone Sodium 1 gm/ 50 mls @ 100 mls/hr 05/28/19 10:00 05/28/19 09:28 Dextrose IVPB 100 mls/hr DAILY RUBIO Administration Metoprolol Tartrate 25 mg 05/27/19 10:00 05/28/19 21:42 Lopressor - PO 25 mg BID RUBIO Administration Prednisone 40 mg 05/30/19 10:00 Deltasone - PO DAILY RUBIO Tramadol HCl 50 mg 05/27/19 08:23 05/29/19 02:08 Ultram - PO 50 mg Q6H PRN Administration PAIN LEVEL 7 - 10 Home Medications Medication Instructions Recorded Clonidine HCl [Catapres] 0.2 mg PO BID 05/27/19 Metoprolol Tartrate 25 mg PO BID 05/27/19 ASSESSMENT AND PLAN: 28 year old male with history of HTN and Asthma, presented with 2-3 day history of increasing shortness of breath, cough (productive of clear sputum), treated as out-patient with Amoxicillin and Azithromycin. 1. Acute Respiratory Failure and Acute Asthma Exacerbation secondary to OLGA Pneumonia (CAP) Weaned down to 3L via NC - for continued supplemental O2 weaning to RA. CTA Chest - no PE, OLGA PNA, Atelectasis Continue Ceftriaxone/Azithromycin, DuoNebs. Transition IV Solumedrol to oral Prednisone and monitor respiratory status. 2. HTN - resumed on Clonidine 0.2mg BID and Metoprolol 25 BID DVT Px- Lovenox SQ
[2019-05-29] MEDS ORDERED: DEXTROSE 5%-WATER - 50 ML IVPB ONE (10:47)
[2019-05-29] MEDS ORDERED: cefTRIAXone SODIUM 1 GM VIAL ONE (10:47)
[2019-05-29] MEDS: METOPROLOL TARTRATE 25 MG TABLET (FP) PO SCH ×2 (10:51→21:47)
[2019-05-29] MEDS: cloNIDine HCL 0.1 MG TABLET PO SCH ×2 (10:51→21:47)
[2019-05-29] MEDS: CEFTRIAXONE 1 GM in DEXTROSE 5%-WATER - 50 ML IVPB SCH (10:52)
[2019-05-29] MEDS: ENOXAPARIN NA (PORCINE) 40 MG/0.4 ML DISP.SYRIN SQ SCH (10:52)
[2019-05-29] MEDS: AZITHROMYCIN IVPB 500 MG/250 ML BAG IVPB SCH (10:52)
--- NOTE | 2019-05-29 15:15 | PN ---
Physical Exam: SUBJECTIVE:Patient seen and examined in the morning. No acute events overnight. Patient is trying to wean herself off of her oxygen support. No complaints of chest pain, abdominal pain, fever, chills. OBJECTIVE: Vital Signs Period Temp Pulse Resp BP Sys/Biswas Pulse Ox Last 24 Hr 97.5 F-98.8 F 74-103 20-22 118-132/70-75 90-95 GENERAL: The patient is awake, alert, and fully oriented, in no acute distress. HEAD: Normal with no signs of trauma. EYES: PERRL, extraocular movements intact, sclera anicteric, conjunctiva clear. No ptosis. ENT: Ears normal, nares patent, oropharynx clear without exudates, moist mucous membranes. on 40% ventimask. NECK: Trachea midline, full range of motion, supple. LUNGS: Lungs clear to auscultation bilaterally. HEART: Regular rate and rhythm, S1, S2 without murmur, rub or gallop. ABDOMEN: Soft, nontender, nondistended, normoactive bowel sounds. EXTREMITIES: 2+ pulses, warm, well-perfused, no edema. NEUROLOGICAL: Cranial nerves II through XII grossly intact. Normal speech. Laboratory Results - last 24 hr 05/29/19 06:00 Sodium 138 Potassium 3.8 Chloride 108 H Carbon Dioxide 22 Anion Gap 7 L BUN 12.1 Creatinine 0.8 Est GFR (CKD-EPI)AfAm 117.10 Est GFR (CKD-EPI)NonAf 101.04 Random Glucose 106 Calcium 8.8 Active Medications Generic Name Dose Route Start Last Admin Trade Name Freq PRN Reason Stop Dose Admin Acetaminophen 1,000 mg 05/27/19 08:23 05/28/19 17:38 Tylenol - PO 1,000 mg Q6H PRN Administration PAIN LEVEL 4 - 6 Albuterol/Ipratropium 1 amp 05/27/19 20:00 05/29/19 11:32 Duoneb - NEB 1 amp RQID RUBIO Administration Albuterol/Ipratropium 1 amp 05/27/19 19:39 05/29/19 02:15 Duoneb - NEB 1 amp Q4H PRN Administration SHORTNESS OF BREATH Clonidine 0.2 mg 05/27/19 10:00 05/29/19 10:51 Catapres - PO 0.2 mg BID RUBIO Administration Enoxaparin Sodium 40 mg 05/27/19 10:00 05/29/19 10:52 Lovenox - SQ 40 mg DAILY RUBIO Administration Guaifenesin 10 ml 05/27/19 19:34 05/29/19 02:07 Robitussin - PO 10 ml Q6H PRN Administration COUGH Azithromycin 500 mg in 250 mls @ 250 mls/hr 05/27/19 10:00 05/29/19 10:52 Zithromax 500mg Ivpb (Pre-Docked) IVPB 250 mls/hr DAILY RUBIO Administration Ceftriaxone Sodium 1 gm/ 50 mls @ 100 mls/hr 05/28/19 10:00 05/29/19 10:52 Dextrose IVPB 100 mls/hr DAILY RUBIO Administration Metoprolol Tartrate 25 mg 05/27/19 10:00 05/29/19 10:51 Lopressor - PO 25 mg BID RUBIO Administration Prednisone 40 mg 05/30/19 10:00 Deltasone - PO DAILY RUBIO Tramadol HCl 50 mg 05/27/19 08:23 05/29/19 02:08 Ultram - PO 50 mg Q6H PRN Administration PAIN LEVEL 7 - 10 ASSESSMENT/PLAN: 28 F with PMH of HTN and Asthma who presents with 2-3 day history of shortness of breath with unproductive cough, likely secondary to pneumonia. 1. Acute Respiratory Distress secondary to pneumonia -CTA chest shows no PE, ground glass opacities in the OLGA -Still requiring 40% Oxygen VentiMask -Continue Ceftriaxone 1 gram Daily -Continue Azithromycin 500 mg Daily -Continue Guaifenisin 10 ml Q6H -Continue Duo-nebs PRN -Prednisone 60 mg PO today -Prendnione 40 mg taper tomorrow. -Continue Tramadol 50 mg Q6H PRN pain level 7-10 -Continue Acetaminophen 1000mg Q6H PRN pain level 4-6 -Pre and Post shows 91% to 90% with HR of 77 to 103. 2. HTN -Continue Clonidine 0.2 mg PO BID -Continue Metoprolol 25 mg PO BID F: Oral Hydration E: Monitor BMP N: Sodium restricted diet DVT: Lovenox 40 SQ Daily Visit type - Emergency Visit Emergency Visit: Yes ED Registration Date: 05/27/19 Care time: The patient presented to the Emergency Department on the above date and was hospitalized for further evaluation of their emergent condition. - New Patient This patient is new to me today: No - Critical Care Critical Care patient: No ATTENDING PHYSICIAN STATEMENT I saw and evaluated the patient. I reviewed the resident's note and discussed the case with the resident. I agree with the resident's findings and plan as documented. SUBJECTIVE: OBJECTIVE: ASSESSMENT AND PLAN:
[2019-05-30] MEDS: guaiFENesin 200 MG/10 ML 10 ML UNIT-DOSE CUPS PO PRN (05:02)
[2019-05-30] MEDS: ALBUTEROL SO4 2.5/IPRATROPIUM 0.5 INH SOL 3 ML VIAL.NEB. NEB SCH ×2 (07:40→11:20)
[2019-05-30 08:56] LABS: BLOOD UREA NITROGEN 14.3 mg/dL (7-18); CALCIUM 8.8 mg/dL (8.5-10.1); CREATININE 0.7 mg/dL (0.55-1.3); POTASSIUM 3.9 mmol/L (3.5-5.1)
[2019-05-30] MEDS ORDERED: DEXTROSE 5%-WATER - 50 ML IVPB ONE (09:34)
[2019-05-30] MEDS ORDERED: cefTRIAXone SODIUM 1 GM VIAL ONE (09:34)
[2019-05-30] MEDS: METOPROLOL TARTRATE 25 MG TABLET (FP) PO SCH (09:43)
[2019-05-30] MEDS: CEFTRIAXONE 1 GM in DEXTROSE 5%-WATER - 50 ML IVPB SCH (09:44)
[2019-05-30] MEDS: cloNIDine HCL 0.1 MG TABLET PO SCH (09:44)
[2019-05-30] MEDS: AZITHROMYCIN IVPB 500 MG/250 ML BAG IVPB SCH (09:45)
[2019-05-30] MEDS: ENOXAPARIN NA (PORCINE) 40 MG/0.4 ML DISP.SYRIN SQ SCH (09:51)
[2019-05-30] MEDS ORDERED: predniSONE 20 MG TABLET (UD) PO SCH (10:00)
--- NOTE | 2019-05-30 12:43 | PN ---
Teaching Attending Note Name of Resident: Loreta Moon ATTENDING PHYSICIAN STATEMENT I saw and evaluated the patient. I reviewed the resident's note and discussed the case with the resident. I agree with the resident's findings and plan as documented. SUBJECTIVE: Significant improvement in SOB/cough. No wheeze. No hemoptysis. No fever/chills. OBJECTIVE: Afebrile. Hemodynamically Stable. SpO2 93% on RA. Last Vital Signs Temp Pulse Resp BP Pulse Ox 99.0 F 74 20 129/82 92 L 05/30/19 06:00 05/30/19 06:00 05/30/19 06:00 05/30/19 06:00 05/29/19 21:00 Heart - S1, S2, RRR Lungs - Good air entry bilaterally, no wheeze. Abdomen - High BMI. Soft. Bowel Sounds normal. Extremities - no calf tenderness. Laboratory Results - last 24 hr 05/30/19 08:00 Sodium 139 Potassium 3.9 Chloride 109 H Carbon Dioxide 23 Anion Gap 7 L BUN 14.3 Creatinine 0.7 Est GFR (CKD-EPI)AfAm 137.62 Est GFR (CKD-EPI)NonAf 118.74 Random Glucose 82 Calcium 8.8 Current Medications Generic Name Dose Route Start Last Admin Trade Name Freq PRN Reason Stop Dose Admin Acetaminophen 1,000 mg 05/27/19 08:23 05/28/19 17:38 Tylenol - PO 1,000 mg Q6H PRN Administration PAIN LEVEL 4 - 6 Albuterol/Ipratropium 1 amp 05/27/19 20:00 05/30/19 07:40 Duoneb - NEB 1 amp RQID RUBIO Administration Albuterol/Ipratropium 1 amp 05/27/19 19:39 05/29/19 02:15 Duoneb - NEB 1 amp Q4H PRN Administration SHORTNESS OF BREATH Clonidine 0.2 mg 05/27/19 10:00 05/30/19 09:44 Catapres - PO 0.2 mg BID RUBIO Administration Enoxaparin Sodium 40 mg 05/27/19 10:00 05/30/19 09:51 Lovenox - SQ Not Given DAILY RUBIO Guaifenesin 10 ml 05/27/19 19:34 05/30/19 05:02 Robitussin - PO 10 ml Q6H PRN Administration COUGH Azithromycin 500 mg in 250 mls @ 250 mls/hr 05/27/19 10:00 05/30/19 09:45 Zithromax 500mg Ivpb (Pre-Docked) IVPB 250 mls/hr DAILY RUBIO Administration Ceftriaxone Sodium 1 gm/ 50 mls @ 100 mls/hr 05/28/19 10:00 05/30/19 09:44 Dextrose IVPB 100 mls/hr DAILY RUBIO Administration Metoprolol Tartrate 25 mg 05/27/19 10:00 05/30/19 09:43 Lopressor - PO 25 mg BID RUBIO Administration Prednisone 40 mg 05/30/19 10:00 05/30/19 09:43 Deltasone - PO 40 mg DAILY RUBIO Administration Tramadol HCl 50 mg 05/27/19 08:23 05/29/19 02:08 Ultram - PO 50 mg Q6H PRN Administration PAIN LEVEL 7 - 10 Home Medications Medication Instructions Recorded Clonidine HCl [Catapres] 0.2 mg PO BID 05/27/19 Metoprolol Tartrate 25 mg PO BID 05/27/19 ASSESSMENT AND PLAN: 28 year old male with history of HTN and Asthma, presented with 2-3 day history of increasing shortness of breath, cough (productive of clear sputum), treated as out-patient with Amoxicillin and Azithromycin. 1. Acute Respiratory Failure and Acute Asthma Exacerbation secondary to OLGA Pneumonia (CAP) Weaned off supplemental O2 to RA. CTA Chest - no PE, OLGA PNA, Atelectasis On Ceftriaxone/Azithromycin - to complete 5 days Abx therapy. Continue DuoNebs , oral Prednisone for 3 more days. 2. HTN - resumed on Clonidine 0.2mg BID and Metoprolol 25 BID DVT Px - Lovenox SQ
[2019-05-30 14:48] VITALS: BP 121/66; PULSE 83; TEMP 98.3
--- NOTE | 2019-05-30 18:04 | DS ---
Physical Exam: SUBJECTIVE: Patient seen and examined in the morning. No acute events overnight. Patient has not needed supplemental oxygen since yesterday afternoon. Has productive cough, but no complaints of shortness of breath. No chest pain, no abdominal pain, no nausea, vomiting, diarrhea. OBJECTIVE: Vital Signs Period Temp Pulse Resp BP Sys/Biswas Pulse Ox Last 24 Hr 98.3 F-99.0 F 74-83 19-20 121-133/66-82 92-94 PHYSICAL EXAM GENERAL: The patient is awake, alert, and fully oriented, in no acute distress. HEAD: Normal with no signs of trauma. EYES: PERRL, extraocular movements intact, sclera anicteric, conjunctiva clear. ENT: Ears normal, nares patent, oropharynx clear without exudates, moist mucous membranes. NECK: Trachea midline, full range of motion, supple. LUNGS: Breath sounds equal, clear to auscultation bilaterally. HEART: Regular rate and rhythm, S1, S2 without murmur, rub or gallop. ABDOMEN: Soft, nontender, nondistended, normoactive bowel sounds. EXTREMITIES: 2+ pulses, warm, well-perfused, no edema. NEUROLOGICAL: Cranial nerves II through XII grossly intact. PSYCH: Normal mood, normal affect. LABS Laboratory Results - last 24 hr 05/30/19 08:00 Sodium 139 Potassium 3.9 Chloride 109 H Carbon Dioxide 23 Anion Gap 7 L BUN 14.3 Creatinine 0.7 Est GFR (CKD-EPI)AfAm 137.62 Est GFR (CKD-EPI)NonAf 118.74 Random Glucose 82 Calcium 8.8 HOSPITAL COURSE: Date of Admission:05/27/19 Date of Discharge: 05/30/19 28 F with PMH of HTN and Asthma who presents with 2-3 day history of shortness of breath with unproductive cough, likely secondary to pneumonia. Patient was started on 40% ventimask on admission and was titrated down to 6L NC the next morning. Patient was slowly titrated down to being off of Nasal Cannula the day before admission. On 05/29 patient had pre and post 91% and 90% with tachycardia off of oxygen with exercise. Patient was treated with IV Ceftriaxone , Azithromycin, and Methylprednisolone IV. Patient was given 60 mg Prednisone day before discharge, and then 40 mg Prednisone the day of discharge. Will complete taper with 3 more days of Prednisone 40 mg PO. Will complete antibiotic therapy with Ampicillin 500 mg TID for 1 day, and Azithromycin 500 mg QD for 1 day. Imaging: Chest X-Ray: 2 views of the chest reveal the weak inspiration with some atelectatic changes at the left base and normal mediastinum. Bones and soft tissues are intact. Correlation recommended. Chest/Thorax CTA: No CT evidence of pulmonary embolism or right heart strain. Marked discoid atelectatic changes in the right and left lower lobes as well as the right middle lobe in addition to some patchy groundglass infiltrates in the left upper lobe suspicious for pneumonia.No CT evidence of pulmonary embolism or right heart strain. Marked discoid atelectatic changes in the right and left lower lobes as well as the right middle lobe in addition to some patchy groundglass infiltrates in the left upper lobe suspicious for pneumonia. Minutes to complete discharge: 35 Discharge Summary Problems reviewed: Yes Reason For Visit: SHORTNESS OF BREATH,HYPOXIA,BRONCHITIS Condition: Good - Instructions Diet, Activity, Other Instructions: You were admitted to the hospital because you have pneumonia and had difficulty breathing. While you were here we gave you antibiotics through the IV. You will finish your antibiotics after discharge orally. We gave you steroids to help your breathing, you will complete a course of steroids as instructed. For your pneumonia please take: Amoxicillin 500 mg, by mouth three times daily for 1 more day. Azithromycin 500 mg, by mouth once daily for 1 more day. Continue taking DuoNeb 4 times a day as needed. Take Prednisone 40 mg by mouth, for 3 more days. Please continue your other medications as directed. Please follow up with your primary care doctor, Dr. Chilel within 1 week. Return to the emergency department if you have chest pain, shortness of breath, fevers, abdominal pains, nausea, vomiting, diarrhea, or worsening of your symptoms. Referrals: Ashley Chilel MD [Staff Physician] - 1 Week Disposition: HOME - Home Medications Comprehensive Discharge Medication List: Ambulatory Orders Clonidine HCl [Catapres] 0.2 mg PO BID 05/27/19 Metoprolol Tartrate 25 mg PO BID 05/27/19 Albuterol 2.5/Ipratropium 0.5 [Duoneb -] 1 amp NEB Q4H PRN #0 amp 05/30/19 predniSONE [Deltasone -] 40 mg PO DAILY #6 tablet 05/30/19 This patient is new to me today: No Emergency Visit: Yes ED Registration Date: 05/27/19 Care time: The patient presented to the Emergency Department on the above date and was hospitalized for further evaluation of their emergent condition. Critical Care patient: No - Discharge Referral Referred to [facility] No ATTENDING PHYSICIAN STATEMENT I saw and evaluated the patient. I reviewed the resident's note and discussed the case with the resident. I agree with the resident's findings and plan as documented. SUBJECTIVE: OBJECTIVE: ASSESSMENT AND PLAN:
== END 2019-05-30 14:55 | disposition home or self-care (01) | DRG 193 ==
LOC: JER 23:36 → JERBED 05-27 06:54 → J5S 05-27 18:07
DX: J18.9 Pneumonia, unspecified organism (principal); J96.00 Acute respiratory failure, unspecified whether with hypoxia or hypercapnia; J98.11 Atelectasis; J45.901 Unspecified asthma with (acute) exacerbation; I10 Essential (primary) hypertension; J45.909 Unspecified asthma, uncomplicated; R05 Cough
CPT/HCPCS: 36415; 36600; 71046-TC-FY; 71275-TC; 80048; 80053; 81003; 82803; 83735; 84100; 84703; 85025; 85610; 85730; 93005; 93010; 94640; 94761; 99284-25; J0735; J7030

== ENCOUNTER 2024-01-26 15:46 | Emergency (ER) | payer OTHER ==
[2024-01-26 16:10] VITALS: BP 115/76; PULSE 70; RESP 19; TEMP 99.1; BMI 45.7
[2024-01-26 16:51] LABS: HEMATOCRIT 40.3 % (32.4-45.2); HEMOGLOBIN 12.8 G/dL (10.7-15.3); MCHC 31.7 g/dl (32.0-36.0); MEAN CELL VOLUME 94.8 fl (80-96); MEAN PLT VOLUME 9.7 fl (7.5-11.1); PLATELET COUNT 240.8 10^3/uL (134-434); RBC 4.25 10^6/uL (3.60-5.2); RDW 13.4 % (11.6-15.6); WHITE BLOOD COUNT 7.3 10^3/uL (4.0-10.8)
[2024-01-26 17:05] LABS: HCG,QUALITATIVE URINE Positive; INR 1.03 (0.83-1.09); PROTHROMBIN TIME (PATIENT) 11.7 SEC (9.7-13.0)
[2024-01-26 17:07] LABS: ALBUMIN 4.6 g/dl (3.4-5.0); BILIRUBIN,TOTAL 0.5 mg/dl (0.2-1); CALCIUM 9.5 mg/dl (8.5-10.1); CREATININE 0.6 mg/dl (0.6-1.3); POTASSIUM 3.8 mmol/L (3.5-5.1); TOT PROT 6.5 g/dl (6.4-8.2)
[2024-01-26 17:08] LABS: ACTIVATED PTT 36.8 SECONDS (25.2-36.5)
[2024-01-26 17:57] LABS: EPITHELIAL CELLS 0-5 /hpf
== END 2024-01-26 18:47 | disposition home or self-care (01) ==
LOC: FER 15:46
DX: O20.9 Hemorrhage in early pregnancy, unspecified (principal); O26.891 Other specified pregnancy related conditions, first trimester; R10.2 Pelvic and perineal pain; R11.0 Nausea; Z3A.01 Less than 8 weeks gestation of pregnancy
CPT/HCPCS: 36415; 76817-TC; 80053; 81003; 81015; 84702; 84703; 85027; 85610; 85730; 86850; 86900; 86901; 87086; 99284-25